=== PATIENT | female | born 1985 | race Hispanic/Latino ===

== ENCOUNTER → 2020-07-04 | Outpatient (CLI) | payer OTHER ==
--- NOTE | 2020-07-04 16:17 | DIREP ---
PROCEDURE:CTA CHEST COMPARISON:None. INDICATIONS:R06.02 SHORTNESS OF BREATH TECHNIQUE:Post contrast axial images through the chest with multiplanar MIP/3D reconstructions. FINDINGS: PULMONARY ARTERIES:Patent. LUNGS:No significant pulmonary parenchymal abnormalities. PLEURA:Normal. CARDIAC:Normal size heart and normal pulmonary vascularity. THORACIC AORTA:Normal. MEDIASTINUM:Normal. THYROID:Normal. BONES:Mild degenerative change. OTHER:Cholecystectomy clips. CONCLUSION:No CT evidence for pulmonary embolus. No acute pulmonary process. Dictated by: Casi Tran M.D. on 07/04/2020 at 04:13 PM
== END | disposition home or self-care (01) ==
LOC: RAD 15:10
PROVIDERS: ATTEND Nurse Practitioner Family
DX: R06.02 Shortness of breath (principal); M19.90 Unspecified osteoarthritis, unspecified site
CPT/HCPCS: 71275; Q9965